=== PATIENT | female | born 1985 | race Caucasian/White ===

== ENCOUNTER 2016-08-23 03:21 | Emergency (ER) | payer MEDICAID ==
[~2016-08-23] VITALS: Ht 162.6 cm; Wt 66.5 kg
[2016-08-23 03:27] VITALS: Ht 162.6 cm; Wt 66.5 kg
[2016-08-23 05:34] LABS: URINE BLOOD (Dip) POC Trace-lysed (NEGATIVE)
--- NOTE | 2016-08-23 05:55 | ERD ---
ER Documentation Chief Complaint Date/Time DATE: 08/23/16 TIME: 05:52 Chief Complaint LEFT FLANK PAIN WITHOUT DYSURIA X 1 DAY HPI This is a 30-year-old female presents to the ER with left flank pain that started yesterday. Patient states that flank pain is severe and constant at times pain radiates into the groin. Patient does admit to urinary frequency and dysuria. She denies any hematuria. She denies any fevers or chills. She denies any nausea vomiting or diarrhea. She denies any trauma to the back. ROS 12 point review of systems was done, all negative except per HPI. Allergies Allergies: Coded Allergies: No Known Drug Allergies (Verified Allergy, Unknown, 08/23/16) PMhx/Soc Medical and Surgical Hx: pt denies Medical Hx, pt denies Surgical Hx Hx Alcohol Use: Yes (rarely) Hx Substance Use: No Hx Tobacco Use: No Smoking Status: Never smoker Physical Exam Vitals Vital Signs Date Time Temp Pulse Resp B/P Pulse Ox O2 Delivery O2 Flow Rate FiO2 08/23/16 03:27 98.8 74 18 133/76 100 Physical Exam GENERAL: The patient is well developed and appropriate for usual state of health , in no apparent distress. HEENT: Atraumatic. CHEST: Clear to auscultation bilaterally. There are no rales, wheezes or rhonchi. HEART: Regular rate and rhythm. No murmurs, clicks, rubs or gallops. ABDOMEN: Soft, nontender and nondistended. Good bowel sounds. No rebound or guarding. No gross peritonitis. No gross organomegaly or masses. No Dill sign or McBurney point tenderness. BACK: No midline or flank tenderness. EXTREMITIES: full range of motion. Grossly neurovascularly intact. NEURO: Alert and oriented. Results 24 hrs Laboratory Tests Test 08/23/16 05:38 Bedside Urine pH (LAB) 6.5 Bedside Urine Protein (LAB) Negative Bedside Urine Glucose (UA) Negative Bedside Urine Ketones (LAB) Negative Bedside Urine Blood Trace-lysed Bedside Urine Nitrite (LAB) Negative Bedside Urine Leukocyte Esterase (L Negative Procedures/MDM Differential diagnosis includes but is not limited to; urinary tract infection, pyelonephritis, nephrolithiasis, obstructive kidney stone, septic kidney stone, intra-abdominal abscess. Patient's-year-old, urine was checked and there was no evidence of urinary tract infection, suspicion for pyelonephritis is low. At this time I was unable to rule out kidney stone or any other intra-abdominal process full workup was ordered. Patient will be given to Trey Cruz. Please see his note for further management and care. Departure Diagnosis: Primary Impression: Flank pain Condition: Stable RAMIRO HORN Aug 23, 2016 05:55
[2016-08-23 05:56] LABS: ADD SCAN DIFF NO
[2016-08-23] MEDS ORDERED: IBUP-1542 PO (05:56)
[2016-08-23 06:10] LABS: BASOPHILS % 0.3 % (0.0-2.0); EOSINOPHILS # 0.8 10^3/ul (0.0-0.5); EOSINOPHILS % 7.2 % (0.0-7.0); HEMATOCRIT 37.5 % (37.0-47.0); HEMOGLOBIN 13.2 g/dl (12.0-16.0); LYMPHOCYTES # 2.4 10^3/ul (0.8-2.9); LYMPHOCYTES % 20.5 % (15.0-51.0); MEAN CORPUSCULAR HEMOGLOBIN 30.8 pg (29.0-33.0); MEAN CORPUSCULAR HGB CONC 35.2 g/dl (32.0-37.0); MEAN CORPUSCULAR VOLUME 87.6 fl (82.0-101.0); MEAN PLATELET VOLUME 10.2 fl (7.4-10.4); MONOCYTE # 0.7 10^3/ul (0.3-0.9); MONOCYTES % 6.1 % (0.0-11.0); NEUTROPHIL # 7.6 10^3/ul (1.6-7.5); NEUTROPHILS % 65.6 % (39.0-77.0); PLATELET COUNT 257 10^3/UL (140-415); RED BLOOD COUNT 4.28 10^6/ul (4.20-5.40); RED CELL DISTRIBUTION WIDTH 11.9 % (11.5-14.5); WHITE BLOOD COUNT 11.6 10^3/ul (4.8-10.8)
[2016-08-23 06:14] LABS: ADD UMIC YES; UR BILIRUBIN (Dip) NEGATIVE (NEGATIVE); UR BLOOD (Dip) TRACE (NEGATIVE); UR CLARITY SL HAZY (CLEAR); UR COLOR LT. YELLOW (YELLOW); UR GLUCOSE (Dip) NEGATIVE (NEGATIVE); UR KETONES (Dip) NEGATIVE (NEGATIVE); UR LEUKOCYTE ESTERASE (Dip) NEGATIVE (NEGATIVE); UR NITRITE (Dip) NEGATIVE (NEGATIVE); UR TOTAL PROTEIN (Dip) NEGATIVE (NEGATIVE); UR UROBILINOGEN (Dip) 0.2 E.U./dL (0.1-1.0)
[2016-08-23 06:21] LABS: UR BACTERIA FEW; UR SQUAMOUS EPITHELIAL CELL MODERATE; URINE RBCS 0-2 /HPF (0)
[2016-08-23 06:33] LABS: ALBUMIN 4.9 g/dl (3.3-4.9); ALBUMIN/GLOBULIN RATIO 1.75; BILIRUBIN,INDIRECT 0.1 mg/dl (0-1.1); BILIRUBIN,TOTAL 0.1 mg/dl (0.2-1.3); CALCIUM 9.5 mg/dl (8.4-10.2); CREATININE 0.74 mg/dl (0.44-1.00); POTASSIUM 3.9 mmol/L (3.5-5.1); TOTAL PROTEIN 7.7 g/dl (6.1-8.1)
--- NOTE | 2016-08-23 06:43 | RADRPT ---
PROCEDURE: CT of the abdomen and pelvis without contrast CLINICAL INDICATION: Abdominal Pain. TECHNIQUE: Spiral CT images through the abdomen and pelvis without the use of contrast. The admin istered radiation dose is CTDI 8.04 and DLP 517.4. One or more of the following dose reduction tech niques were used: automated exposure control, adjustment of the mA and/or kV according to patient si ze, or use of iterative reconstruction technique. COMPARISON: None FINDINGS: Lack of oral and intravenous contrast somewhat limits evaluation. Slight dependent atelectasis of the lung bases is seen. No pleural effusion is seen. Slightly prominent left atrium. Tiny subpleu ral nodule in the right middle lobe, incidental. Colonic interposition of the liver. The liver, spleen, adrenals, kidneys, and pancreas are unremarkable in appearance. . There is no e vidence for bowel obstruction, free air, or abscess. The appendix is normal in appearance. there i s no evidence for diverticulitis. A tiny amount of free fluid is seen in the cul-de-sac. The uteru s and adnexal structures are grossly unremarkable. No adenopathy is seen. Minimal stranding of the left gluteal fat. The bladder is unremarkable appearance. No bony abnormality is seen.. IMPRESSION: Trace pelvic free fluid. Otherwise unremarkable study.. RPTAT: [facility] Physician Priyanka Date Time Electronically viewed and signed by Physician Priyanka on 08/23/2016 06:43 LE/
== END 2016-08-23 07:05 | disposition home or self-care (01) ==
LOC: FTE 03:21
DX: R10.9 Unspecified abdominal pain (principal)
CPT/HCPCS: 36415; 74176; 80053; 81001; 81003; 83690; 85025

== ENCOUNTER 2017-05-15 12:30 | Emergency (ER) | END 2017-05-15 15:30 | disposition home or self-care (01) ==

== ENCOUNTER 2018-10-19 10:51 | Emergency (ER) | payer MEDICAID ==
[~2018-10-19] VITALS: Ht 165.1 cm; Wt 67.9 kg
[~2018-10-19 10:51] MED LIST: ACET500C5 PO; IBUP-1542 PO; LOPE2CAP PO; MAG-19 PO; NAPR-985 PO; OMEP40CA6 PO
[2018-10-19 10:55] VITALS: BP 116/55; PULSE 71; RESP 20; Ht 165.1 cm; Wt 67.9 kg
[2018-10-19] MEDS ORDERED: LIDOCAINE/MYLANTA 40 ML BTL PO STA (11:09)
[2018-10-19] MEDS ORDERED: BELLADONNA/PHENOBARBITAL TAB PO STA (11:09)
--- NOTE | 2018-10-19 11:47 | ERD ---
ER Documentation Chief Complaint Chief Complaint epigastric pain since this morning; denies n/v HPI 32-year-old female otherwise healthy here presents complaining of epigastric pain that began this morning. Symptoms began after she took a B vitamin. No nausea vomiting or diarrhea. No right upper quadrant abdominal pain. No fever. Has not taken any medications for symptoms. ROS All systems reviewed and are negative except as per history of present illness. Medications Home Meds Active Scripts Omeprazole* (Omeprazole*) 40 Mg Capsule.dr, 40 MG PO DAILY, #20 CAP Prov:BETZAIDA GREWAL PA-C 10/19/18 Magaldrate/Simethicone* (Mylanta*) 355 Ml Susp, 30 ML PO QID PRN for GASTROINTESTINAL UPSET, #1 BOTTLE Prov:BETZAIDA GREWAL PA-C 10/19/18 Acetaminophen* (Tylophen*) 500 Mg Capsule, 1 CAP PO Q6H PRN for PAIN AND OR ELEVATED TEMP, #30 CAP Prov:DANNI CID PA-C 05/15/17 Naproxen* (Naprosyn*) 500 Mg Tablet, 500 MG PO BID PRN for PAIN AND/OR INFLAMMATION, #30 TAB Prov:DANNI CID PA-C 05/15/17 Ibuprofen* (Motrin*) 600 Mg Tab, 600 MG PO Q6, #30 TAB Prov:RAMIRO HORN 08/23/16 Allergies Allergies: Coded Allergies: No Known Drug Allergies (Verified Allergy, Unknown, 05/15/17) PMhx/Soc Medical and Surgical Hx: pt denies Medical Hx, pt denies Surgical Hx Hx Alcohol Use: No Hx Substance Use: No Hx Tobacco Use: No FmHx Family History: No diabetes Physical Exam Vitals Vital Signs Date Temp Pulse Resp B/P (MAP) Pulse Ox O2 O2 Flow FiO2 Time Delivery Rate 10/19/18 98.9 71 20 116/55 100 10:55 (75) Physical Exam INITIAL VITAL SIGNS: Reviewed by me GENERAL: Awake, alert and oriented x 4, well appearing, nontoxic, speaking in full sentences. No acute distress RESPIRATORY: Clear to auscultation bilaterally. Symmetric chest wall rise. No wheezing or rales. No accessory muscle use. CV: Regular rate and rhythm. No murmurs, rubs, or gallops. ABDOMEN: Soft, non-distended. Nontender. Negative [place]. Negative McBurneys point tenderness. No CVA tenderness bilaterally. No guarding. No rebound. Results 24 hrs Laboratory Tests Test 10/19/18 11:16 POC Beta HCG, Qualitative NEGATIVE Current Medications Medications Dose Sig/Frandy Start Time Status Last (Trade) Ordered Route PRN Stop Time Admin Dose Reason Admin 40 ml ONCE STAT 10/19/18 DC 10/19/18 Miscellaneous PO 11:09 11:13 Medication 10/19/18 11:11 (Gi Cocktail (2)) [place]/ 2 tab ONCE STAT 10/19/18 DC 10/19/18 Phenobarbital PO 11:09 11:13 () 10/19/18 11:11 Procedures/MDM The differential diagnosis includes but is not limited to appendicitis, cholelithiasis, cholecystitis, pancreatitis, hepatitis, gastritis, peptic ulcer disease, bowel obstruction, diverticulitis, renal disease including stones, torsion, AAA, pyelonephritis, and others. Patient's pain is localized to the epigastric region. She has no right lower quadrant tenderness and no right upper quadrant tenderness. Is likely gastritis. Her vitals are normal. She was given GI cocktail here with improvement and discharged with omeprazole and Mylanta. Patient counseled regarding my diagnostic impression and care plan. Prior to discharge all questions answered. Pt agrees with treatment plan and understands strict return precautions. Pt is instructed to follow up with primary care provider within 24-48 hours. Precautionary instructions provided including instructions to return to the ER if not improving or for any worsening or changing symptoms or concerns. Departure Diagnosis: Primary Impression: Epigastric abdominal pain Condition: Stable Patient Instructions: Epigastric Pain (Uncertain Cause) Additional Instructions: Llame al doctor MAANA y shai eusebia VINAY PARA DENTRO DE 1-2 HUNTER.Dgale a la secretaria que nosotros le instruimos hacer esta vinay.Avise o llame si duncan condicin se empeora antes de la vinay. Regresa aqui si peor o no mejor. BETZAIDA GREWAL PA-C Oct 19, 2018 11:47
[2018-10-19] MEDS ORDERED: ONDANSETRON (ODT) 4 MG TAB ODT STA (11:56)
[2018-10-19] MEDS ORDERED: morphine 4 MG/ML VIAL IM STA (11:56)
== END 2018-10-19 12:10 | disposition home or self-care (01) ==
LOC: FTE 10:51
DX: R10.13 Epigastric pain (principal)
CPT/HCPCS: 81025; 96372; J2270; Z7502; Z7610